=== PATIENT | male | born 1970 | race African-American/Black ===

== ENCOUNTER 2018-11-18 08:54 | Emergency (ER) | payer OTHER ==
[2018-11-18 09:00] VITALS: BP 109/70; PULSE 108; TEMP 97.9; BMI 31.2
--- NOTE | 2018-11-18 09:18 | PDOC ---
History of Present Illness - General Chief Complaint: Injury Stated Complaint: INJURY Time Seen by Provider: 11/18/18 09:01 History Source: Patient Exam Limitations: No Limitations Past History - Past Medical History Allergies/Adverse Reactions: Allergies Allergy/AdvReac Type Severity Reaction Status Date / Time clarithromycin [From Biaxin] Allergy Verified 11/18/18 08:56 COPD: No HTN: Yes - Immunization History Immunization Up to Date: Yes - Suicide/Smoking/Psychosocial Hx Smoking History: Never smoked Hx Alcohol Use: No Drug/Substance Use Hx: No *Physical Exam - Vital Signs Last Vital Signs Temp Pulse Resp BP Pulse Ox 97.9 F 108 H 18 109/70 96 11/18/18 08:56 11/18/18 08:56 11/18/18 08:56 11/18/18 08:56 11/18/18 08:56 - Physical Exam General Appearance: No: Apparent Distress Neck: positive: Supple Extremity: positive: Normal Inspection, Normal Range of Motion, Other (FROM of R shoulder, no swelling or deformity of joints noted, no clavicular tenderness) Integumentary: positive: Normal Color. negative: Swelling, Ecchymosis, Bruising Neurologic: positive: Alert, Normal Mood/Affect Medical Decision Making - Medical Decision Making 48 y/o M hx of HTN, prior B/L shoulder rotator cuff surgeries (in 2000), works for [employer], presents with R shoulder pain after lifting heavy garbage with R arm yesterday. Denies fall, neck pain, numbness/tingling. Could be rotator cuff injury vs tendinitis Current exam unremarkable; no suspicion for fracture/dislocation Patient already has orthopedic doctor 11/18/18 09:13 *DC/Admit/Observation/Transfer Diagnosis at time of Disposition: Right shoulder injury Qualifiers: Encounter type: initial encounter Qualified Code(s): S49.91XA - Unspecified injury of right shoulder and upper arm, initial encounter - Discharge Dispostion Disposition: HOME Condition at time of disposition: Stable Decision to Admit order: No - Referrals Referrals: Alex Hills MD [Primary Care Provider] - - Patient Instructions Printed Discharge Instructions: DI for Rotator Cuff Injury Additional Instructions: Thank you for choosing [facility]. It was a pleasure taking care of you. Your symptoms could be related to rotator cuff injury or tendonitis. You may take Motrin 600 mg every 6 hours by mouth as needed for mild to moderate pain. Take Motrin with food. You may follow-up with the orthopedic doctor Return to the Emergency Department if your symptoms worsen or persist or have other concerning symptoms. - Post Discharge Activity
== END 2018-11-18 09:27 | disposition home or self-care (01) ==
LOC: JERFT 08:54
DX: S49.81XA Other specified injuries of right shoulder and upper arm, initial encounter (principal); X50.0XXA Overexertion from strenuous movement or load, initial encounter; Y93.H9 Activity, other involving exterior property and land maintenance, building and construction; Y92.414 Local residential or business street as the place of occurrence of the external cause; Y99.0 Civilian activity done for income or pay
CPT/HCPCS: 99281-25